=== PATIENT | male | born 1960 | race Caucasian/White ===

== ENCOUNTER 2018-09-26 11:00 | Inpatient (IN) | payer OTHER ==
[2018-09-22 14:09] VITALS: BP 127/80
[~2018-09-26] VITALS: Ht 175.3 cm; Wt 105.4 kg
[~2018-09-26 11:00] MED LIST: ASPI-496 PO; PRAV40TA2 PO
[2018-09-26] MEDS ORDERED: LACTATED RINGERS 1,000 ML IV SCH (11:33)
[2018-09-26] MEDS ORDERED: THROMBIN 5,000 UNIT VIAL TP ONE (12:07)
[2018-09-26] MEDS ORDERED: EPINEPHRINE 1 MG/ML, 1ML ONE (12:07)
[2018-09-26] MEDS ORDERED: BUPIVACAINE/PF 0.25% ONE (12:07)
[2018-09-26] MEDS ORDERED: MIDAZOLAM 1 MG/ML, 2ML ONE (12:34)
[2018-09-26] MEDS ORDERED: FENTANYL PF 250 MCG/5ML ONE ×2 (12:34→15:22)
[2018-09-26] MEDS ORDERED: ONDANSETRON 2MG/ML, 2ML ONE (12:42)
[2018-09-26] MEDS ORDERED: SUCCINYLCHOLINE 20 MG/ML, 10ML ONE (12:42)
[2018-09-26] MEDS ORDERED: CEFAZOLIN 1,000 MG ONE (12:42)
[2018-09-26] MEDS ORDERED: DEXAMETHASONE 4 MG/ML, 1ML ONE (12:42)
[2018-09-26] MEDS ORDERED: OPIUM/BELLADONNA SUPP.RECT 16.2-60 MG ONE (12:52)
[2018-09-26] MEDS ORDERED: PROPOFOL 50 ML ONE (15:43)
[2018-09-26] MEDS ORDERED: FENTANYL PF 100 MCG/2ML ONE (17:47)
[2018-09-26] MEDS ORDERED: OXYcodone 5 MG/5 ML ORAL.SOL UDC ONE (17:47)
[2018-09-26] MEDS ORDERED: HYDROmorphone 2 MG/ML, 1ML ONE (17:47)
[2018-09-26] MEDS ORDERED: ACETAMINOPHEN 650 MG/20.3 ML UDC ONE (17:47)
[2018-09-26] MEDS: FENTANYL PF 100 MCG/2ML IV PRN ×2 (18:06→18:17)
[2018-09-26] MEDS: HYDROmorphone 2 MG/ML, 1ML IVPush PRN ×4 (18:09→18:35)
[2018-09-26] MEDS ORDERED: MORPHINE SULFATE 4 MG/ML, 1ML IVPush PRN (18:30)
[2018-09-26] MEDS ORDERED: MEPERIDINE/PF 25MG/0.5ML IVPush PRN (18:30)
[2018-09-26] MEDS ORDERED: hydrALAzine 20 MG/ML, 1ML IV PRN (18:30)
[2018-09-26] MEDS ORDERED: ONDANSETRON 2MG/ML, 2ML IV PRN ×2 (18:30→19:30)
[2018-09-26] MEDS ORDERED: MIDAZOLAM 1 MG/ML, 2ML IV PRN (18:30)
[2018-09-26] MEDS ORDERED: OXYcodone 5 MG/5 ML ORAL.SOL UDC PO PRN (18:30)
[2018-09-26] MEDS ORDERED: LABETALOL 5MG/ML, 20ML IV PRN (18:30)
[2018-09-26] MEDS ORDERED: PROMETHAZINE 25 MG/ML, 1ML IV PRN (18:30)
[2018-09-26 19:20] VITALS: BP 158/89
[2018-09-26] MEDS ORDERED: OPIUM/BELLADONNA SUPP.RECT 16.2-60 MG PR PRN (19:30)
[2018-09-26] MEDS ORDERED: MORPHINE SULFATE 4 MG/ML, 1ML IV PRN (19:30)
[2018-09-26 20:00] VITALS: BP 147/97
[2018-09-26] MEDS ORDERED: LACTATED RINGERS 500 ML IV PRN (20:00)
[2018-09-26] MEDS: ACETAMINOPHEN 500 MG TABLET PO SCH (22:06)
[2018-09-27] VITALS: BP 122/75
[2018-09-27] MEDS: D5%-0.45NACL+KCL 20MEQ 1,000 ML IV SCH ×4 (00:02→21:55)
[2018-09-27] MEDS ORDERED: MORPHINE SULFATE 4 MG/ML, 1ML IV PRN (01:30)
[2018-09-27] MEDS: ACETAMINOPHEN 500 MG TABLET PO SCH ×4 (03:08→21:55)
[2018-09-27 04:30] VITALS: BP 95/55
[2018-09-27 05:45] VITALS: BP 106/66
[2018-09-27 06:19] LABS: CHLORIDE 107 mmol/L (98-107)
[2018-09-27 06:24] LABS: ANION GAP 7 mmol/L (5-15); CALCIUM 7.9 mg/dL (8.5-10.1); CREATININE 0.99 mg/dL (0.7-1.3)
[2018-09-27] MEDS ORDERED: ENOXAPARIN 40 MG/0.4 ML SQ SCH (08:00)
[2018-09-27 08:40] VITALS: BP 115/71
[2018-09-27 13:05] LABS: MEAN CORPUSCULAR HEMOGLOBIN 30.4 pg (27.5-34.5); MEAN CORPUSCULAR HGB CONC 32.2 g/dL (33.2-36.2); MEAN CORPUSCULAR VOLUME 94.3 fL (81-97); MEAN PLATELET VOLUME 8.3 fL (7.4-10.4); PLATELET COUNT 174 x10^3/uL (130-400); RED BLOOD COUNT 3.94 x10^6/uL (4.38-5.82); RED CELL DISTRIBUTION WIDTH 14.6 % (9.4-14.8)
[2018-09-27 13:20] LABS: MD YES
[2018-09-27 13:23] LABS: BAND#(MANUAL) 0.37 x10^3/uL; BANDS%(MANUAL) 1 % (0-7); LYMPH#(MANUAL) 27.74 x10^3/uL (1-3.4); LYMPHS% (MANUAL) 76 % (22-44); MONOS#(MANUAL) 1.46 x10^3/uL (0.3-2.7); MONOS% (MANUAL) 4 % (2-9); SEG#(MANUAL) 6.94 x10^3/uL (1.8-6.8); SEGS% (MANUAL) 19 % (42-75)
[2018-09-27 13:24] LABS: <PLATELET ESTIMATE> ADEQUATE; <RBC MORPHOLOGY> NORMAL
[2018-09-27 13:27] LABS: <PLT MORPHOLOGY> NORMAL PLT MORPH
[2018-09-27] MEDS: HYDROcodone/APAP 5/325 TABLET PO PRN ×4 (15:26→23:17)
[2018-09-27 15:47] VITALS: BP 102/64
[2018-09-27 19:33] VITALS: BP 113/65
[2018-09-28 01:08] VITALS: BP 115/76
[2018-09-28] MEDS: HYDROcodone/APAP 5/325 TABLET PO PRN ×6 (04:06→21:08)
[2018-09-28] MEDS: ACETAMINOPHEN 500 MG TABLET PO SCH ×5 (04:07→21:09)
[2018-09-28] MEDS: D5%-0.45NACL+KCL 20MEQ 1,000 ML IV SCH ×4 (05:03→23:08)
[2018-09-28 06:40] LABS: ANION GAP 5 mmol/L (5-15); CALCIUM 8.4 mg/dL (8.5-10.1); CHLORIDE 108 mmol/L (98-107)
[2018-09-28 06:42] LABS: CREATININE 0.98 mg/dL (0.7-1.3)
[2018-09-28 07:25] VITALS: BP 122/70
[2018-09-28 14:56] VITALS: BP 143/86
[2018-09-28 19:22] VITALS: BP 123/84
[2018-09-29 01:16] VITALS: BP 109/74
[2018-09-29] MEDS: ACETAMINOPHEN 500 MG TABLET PO SCH ×2 (01:20→09:06)
[2018-09-29] MEDS: HYDROcodone/APAP 5/325 TABLET PO PRN ×3 (01:20→09:06)
[2018-09-29] MEDS: D5%-0.45NACL+KCL 20MEQ 1,000 ML IV SCH (05:29)
[2018-09-29 06:13] LABS: ANION GAP 4 mmol/L (5-15); CALCIUM 8.8 mg/dL (8.5-10.1); CHLORIDE 106 mmol/L (98-107); CREATININE 1.01 mg/dL (0.7-1.3)
[2018-09-29 07:58] VITALS: BP 113/69
[2018-09-29] MEDS ORDERED: HYDR-3240 PO (09:45)
== END 2018-09-29 12:07 | disposition home or self-care (01) | DRG 707 ==
LOC: OUT 11:00 → 4NOR 19:24 → OUT 19:59 → DCLOUNGE 09-29 11:42
PROVIDERS: ADMIT Urology; ATTEND Urology
PROC: 0VT34ZZ Resection of Bilateral Seminal Vesicles, Percutaneous Endoscopic Approach (ICD-10-PCS; 2018-09-26)
PROC: 0TQC4ZZ Repair Bladder Neck, Percutaneous Endoscopic Approach (ICD-10-PCS; 2018-09-26)
PROC: 8E0W4CZ Robotic Assisted Procedure of Trunk Region, Percutaneous Endoscopic Approach (ICD-10-PCS; 2018-09-26)
PROC: 0VTQ4ZZ Resection of Bilateral Vas Deferens, Percutaneous Endoscopic Approach (ICD-10-PCS; 2018-09-26)
PROC: 03HY32Z Insertion of Monitoring Device into Upper Artery, Percutaneous Approach (ICD-10-PCS; 2018-09-26)
PROC: 0VT04ZZ Resection of Prostate, Percutaneous Endoscopic Approach (ICD-10-PCS; principal; 2018-09-26 13:00)
DX: C61 Malignant neoplasm of prostate (principal); R65.11 Systemic inflammatory response syndrome (SIRS) of non-infectious origin with acute organ dysfunction; I10 Essential (primary) hypertension; M19.90 Unspecified osteoarthritis, unspecified site; I25.10 Atherosclerotic heart disease of native coronary artery without angina pectoris; E78.2 Mixed hyperlipidemia; H91.92 Unspecified hearing loss, left ear; Z80.42 Family history of malignant neoplasm of prostate; Z91.030 Bee allergy status; Z85.828 Personal history of other malignant neoplasm of skin; Z87.01 Personal history of pneumonia (recurrent); Z90.89 Acquired absence of other organs; Z83.3 Family history of diabetes mellitus; Z82.49 Family history of ischemic heart disease and other diseases of the circulatory system; Z80.3 Family history of malignant neoplasm of breast; Z80.8 Family history of malignant neoplasm of other organs or systems
CPT/HCPCS: 36415; 80048; 82570; 85014; 85018; 85025; 86850; 86900; 88309; C1729; G0378; J0171; J0690; J1100; J1170; J2250; J2405; J2704; J3010; J3490; C1760; J0330; J3480

== ENCOUNTER 2018-10-04 14:11 | Outpatient (CLI) | payer OTHER ==
[~2018-10-04 14:11] MED LIST changes: +HYDR-3240 PO
[2018-12-01] MEDS ORDERED: PRAV40TA2 PO (12:42)
== END 2018-10-04 23:59 | disposition home or self-care (01) ==
LOC: RAD 14:11
PROVIDERS: ATTEND Urology
DX: Z85.46 Personal history of malignant neoplasm of prostate (principal)
CPT/HCPCS: 51600; 74430; Q9958

== ENCOUNTER → 2018-11-23 | Outpatient (CLI) | payer OTHER ==
[2018-11-23 14:07] LABS: MICROSCOPIC AUTO
[2018-11-23 14:56] LABS: CULTURE INDICATED? NO
== END | disposition home or self-care (01) ==
LOC: STAR 13:05
PROVIDERS: ATTEND Orthopaedic Surgery
DX: Z01.818 Encounter for other preprocedural examination (principal); M19.072 Primary osteoarthritis, left ankle and foot
CPT/HCPCS: 81001